=== PATIENT | female | born 1990 | race Caucasian/White ===

== ENCOUNTER 2025-01-15 17:14 | Emergency (ER) | payer MEDICAID, SELFPAY ==
[2025-01-15 17:15] VITALS: BMI 29.0
[2025-01-15 18:11] VITALS: BP 143/97; PULSE 77; RESP 19; TEMP 36.9; O2SAT 98
[2025-01-15] MEDS: PROMETHAZINE/DM SYRUP 5 ML DOSE PO (19:00)
[2025-01-15] MEDS: IBUPROFEN TAB 400 MG TABLET 800 MG PO (19:00)
[2025-01-15 19:17] VITALS: PULSE 77
[2025-01-15] MEDS: ALBUTEROL RT 2.5 MG/0.5 ML NEBU INH (19:17)
[2025-01-15] MEDS: SODIUM CHLORIDE RT SOL 0.9% 3 ML NEBU INH (19:17)
[2025-01-15 19:18] VITALS: PULSE 70; RESP 20; O2SAT 100
--- NOTE | 2025-01-15 20:18 | EDNOTE_ITS ---
Upper Respiratory Inf. RME/HPI General Chief Complaint: Flu Like Symptoms Stated Complaint: FLU SYMPTOMS, SORE THROAT Time Seen by Provider: 01/15/25 17:39 Arrival date/time: 01/15/25 17:14 This is a 34-year-old female that comes in with complaints of cough, runny nose, congestion, sore throat, body aches that started 3 days ago. Patient also complained of shortness of breath. Related Data Previous Rx's ?Medication ?Instructions ?Recorded hydrocodone 5 mg-acetaminophen 325 1 tab PO Q6H PRN pa in #14 tabs 02/25/ mg tablet ([place]) naproxen 500 mg tablet (Naprosyn) 500 mg PO BID #30 ta bs 01/11/21 sodium chloride 0.65 % nasal spray 2 spray intranasal QID #60 mL 01/11/21 aerosol (Saline Nasal) azithromycin 500 mg tablet See Rx Instructions PO .COM PLEX #6 09/30/21 tabs ibuprofen 800 mg tablet 800 mg PO TID PRN pain #30 t abs 09/30/21 ibuprofen 600 mg tablet 600 mg PO Q6H #30 tabs 12/07 albuterol sulfate 90 mcg/actuation 1 puff inhalation Q ID PRN 01/15/25 aerosol inhaler shortness of breath or wheez ing #8.5 grams ibuprofen 800 mg tablet 800 mg PO Q6H PRN pain #14 t abs 01/15/25 promethazine-DM 6.25 mg-15 mg/5 mL 5 ml PO Q6H PRN cou gh #120 mL 01/15/25 oral syrup Allergies Allergy/AdvReac Type Severity Reaction Status Date / Time Milk Containing Products Allergy Severe Abdominal Verified 01/15/25 17:14 (Dairy) Pain Penicillins Allergy Unknown CHILDHOOD-UNKNOWN Verified 01/15/25 17:14 RXN Review of Systems Review of Systems Systems Reviewed: All systems reviewed, normal except as documented Past Medical History Past Medical History NEUROLOGIC: Negative Neurological Disorders CARDIAC: Negative Cardiac Disorders or Congestive Heart Failure RESPIRATORY: Positive Asthma; Negative Chronic Obstructive Pulmonary Disease (COPD) GASTROINTESTINAL: Negative Gastrointestinal Disorders GENITOURINARY: Negative Genitourinary Disorders or Renal Disease MUSCULOSKELETAL: Negative Musculoskeletal Disorders ENDOCRINE: Negative Endocrine Disorders, Diabetes Mellitus Type 1 or Diabetes Mellitus Type 2 HEMATOLOGIC: Negative Blood Disorders or Sickle Cell Disease OTHER HISTORY: Negative Autoimmune Disease or Organ Transplant Family History FAMILY HISTORY: Negative Family Respiratory Disorders, Family Cardiac Disorders or Family Gastrointestinal Problems Surgical History SURGICAL: Negative Cardiac Surgery, Endocrine Surgery, Ear Surgery, Abdominal Ashraf rgery, Nephrectomy, Joint Replacement, Mastectomy, Vasectomy or Organ Transplant Social History SMOKING STATUS: Heavy (> 1 pack/day) ED Exam General General appearance: Present alert and in no apparent distress Head Head exam: Present atraumatic Eye Eye exam: Present normal appearance, PERRL and EOMI ENT ENT exam: Present normal exam, normal oropharynx and mucous membranes moist Neck Neck exam: Present normal inspection, full ROM and trachea midline Chest Chest inspection: Present normal inspection and symmetric chest wall rise Respiratory Respiratory exam: Present other (posterior wheezing lower lobes ) Cardiovascular Cardiovascular exam: Present regular rate Abdominal Exam Abdominal exam: Present soft Extremities Exam Extremities exam: Present normal inspection and full ROM Back Exam Back exam: Present normal inspection and full ROM Neurological Exam Neurological exam: Present alert, oriented X3 and CN II-XII intact Psychiatric Psychiatric exam: Present normal affect and normal mood Skin Skin exam: Present warm, dry, intact and normal color Course Quality Measures none Orders Category Date Time Status Bedside COVID-19 Antigen Test NOW Care 01/15/25 18:17 Completed Bedside Influenza A&B Antigen Test NOW Care 01/15/25 18:17 Completed ALBUTEROL RT 0.5ml [Proventil Rt 0.5ml] Med 01/15/25 18:17 Discontinued 2.5 mg INH X1 ONE Ibuprofen Tab [Motrin Tab] Med 01/15/25 18:17 Discontinued 800 mg PO X1 ONE Promethazine/Dextromethorph [Phenergan Dm Syrup] Med 01/15/25 18:17 Discontinued 5 ml PO X1 ONE Sodium Chloride Rt Rosanne 0.9% [NS Rt Rosanne 0.9%] Med 01/15/25 18:17 Discontinued 3 ml INH PRN PRN Vital Signs Vital signs: Vital Signs Temperature 98.4 F 01/15/25 18:11 Pulse Rate 77 01/15/25 18:11 Respiratory Rate 19 01/15/25 18:11 Blood Pressure 143/97 H 01/15/25 18:11 Pulse Oximetry (%) 98 01/15/25 18:11 Oxygen Delivery Method Room Air 01/15/25 18:11 Upper Respiratory Infection MDM Narrative MDM Narrative:: Patient given albuterol nebulizer lungs sounds improved. Patient had wheezing upon arrival. Patient given ibuprofen and Promethazine DM patient feels better. Will discharge patient with inhaler, cough medicine, and ibuprofen. Patient told to follow-up with primary provider in 1 to 2 days. Come back to the emergency room symptoms change or worsen. Patient data External records reviewed:: [facility] previous records Clinical information provided by:: patient Social determinants that could affect healthcare access:: none Patient has the following chronic illnesses:: none How is presenting disease/condition affected by chronic disease/condition?: no chronic disease Evaluation data The following diagnostics were reviewed and interpreted by me:: other (specify) (none ) Lab and/or radiology exams considered but not ordered:: none Interpretation Summary: see note Medications / Prescriptions Medications or Prescriptions considered but not ordered:: none Medication administrations:: Medication Administration History Discontinued Medications Albuterol (Albuterol Rt 2.5 Mg/0.5 Ml Nebu) 2.5 mg INH X1 ONE Stop: 01/15/25 18:18 Last Admin: 01/15/25 19:17 Dose: 2.5 mg Documented By: MIGUEL Ibuprofen (Ibuprofen Tab 400 Mg Tablet) 800 mg PO X1 ONE Stop: 01/15/25 18:18 Last Admin: 01/15/25 19:00 Dose: 800 mg Documented By: MUNA Promethazine HCl/Dextromethorphan (Promethazine/Dm Syrup 5 Ml Dose) 5 ml PO X1 ONE; Protocol Stop: 01/15/25 18:18 Last Admin: 01/15/25 19:00 Dose: 5 ml Documented By: MUNA Sodium Chloride (Sodium Chloride Rt Rosanne 0.9% 3 Ml Nebu) 3 ml INH PRN PRN PRN Reason: SOLN Stop: 02/14/25 18:16 Last Admin: 01/15/25 19:17 Dose: 3 ml Documented By: MIGUEL see mar Consultations Consultation(s) initiated? (list below): No Diagnosis Upper Respiratory Differential Diagnosis: upper respiratory infection, otitis media, sinusitis, viral infection and influenza Most likely diagnosis given after review of the tests above:: URI, RAD Admission Indicated Admission indicated?: not indicated Admission Request Was there a request for admission?: No Disposition Plan Disposition Plan: Discharge Discharge Attestation Discharge Attestation: The patient and all family members were given an opportunity to ask questions and understood the discharge instructions. Discharge instructions specifically effects, indications for sooner follow up or return to the emergency department, and the expected course of current diagnosis. Patient condition: Stable Discharge Plan Plan Patient Disposition: HOME (Self Care) Patient condition on transfer: Stable Prescriptions/Referrals Prescriptions/Med Rec: New promethazine-DM 6.25-15 mg/5 mL syrup 5 ml PO Q6H PRN (Reason: cough) Qty: 120 0RF albuterol sulfate 90 mcg/actuation HFA aerosol inhaler 1 puff inhalation QID PRN (Reason: shortness of breath or wheezing) Qty: 8.5 0RF ibuprofen 800 mg tablet 800 mg PO Q6H PRN (Reason: pain) Qty: 14 0RF No Action hydrocodone-acetaminophen [[place]] 5-325 mg tablet 1 tab PO Q6H MDD 4 PRN (Reason: pain) Qty: 14 0RF ibuprofen 800 mg tablet 800 mg PO TID PRN (Reason: pain) Qty: 30 0RF azithromycin 500 mg tablet See Rx Instructions PO .COMPLEX Qty: 6 0RF Rx Instructions: take 500 mg today (day 1), then 250 mg for 4 days (days 2-5) naproxen [Naprosyn] 500 mg tablet 500 mg PO BID Qty: 30 0RF sodium chloride [Saline Nasal] 0.65 % aerosol,spray 2 spray intranasal QID Qty: 60 0RF ibuprofen 600 mg tablet 600 mg PO Q6H Qty: 30 0RF Problem List Clinical Impression: URI (upper respiratory infection), RAD (reactive airway disease), Cough Patient/Caregiver Discharge Instructions Discharge Activity: activity as tolerated Education Materials: ED URI, Viral W/ Wheezing (Adult) Additional Instructions: Follow-up with primary provider in 1 to 2 days. Come back to the emergency room if symptoms change or worsen. Print Language: Thai Stand Alone Forms: [place] Award Info., Patient Portal Info Letter PA/BODY AND FENDER MECHANIC APPRENTICE Supervising Physician PA/BODY AND FENDER MECHANIC APPRENTICE Supervising Physician: ethel
== END 2025-01-15 21:06 | disposition home or self-care (01) ==
PROVIDERS: Emergency Provider Emergency Medicine; PCP Family Medicine
DX: J06.9 Acute upper respiratory infection, unspecified (principal); J45.909 Unspecified asthma, uncomplicated
CPT/HCPCS: 94640; 99283; A9270

== ENCOUNTER → 2025-11-21 | Outpatient (CLI) | payer MEDICAID, SELFPAY ==
--- NOTE | 2025-11-21 13:14 | XR_ITS ---
Examination: OB Transvaginal ultrasound of the pelvis, complete Technique: Transvaginal sonographic images pelvis performed using ramirez scale imaging Exam date and time: November 21, 2025, 1325 hours INDICATIONS: Unknown size and dates FINDINGS: Uterus 17.2 cm CRL 6.7 cm corresponds to 13 weeks 0 days gestational age Cardiac motion 157 bpm Ovaries obscured by bowel gas IMPRESSION: Viable intrauterine gestation 13 weeks 0 days.
== END | disposition home or self-care (01) ==
LOC: CDIM 11:48
PROVIDERS: PCP Obstetrics & Gynecology; Referring Provider Obstetrics & Gynecology; Visit Provider Obstetrics & Gynecology
DX: O29 Complications of anesthesia during pregnancy (principal); Z3A.13 13 weeks gestation of pregnancy
CPT/HCPCS: 76817